=== PATIENT | female | born 1955 | race Caucasian/White ===

== ENCOUNTER 2017-08-07 18:55 | Inpatient (IN) | payer MEDICAID, OTHER ==
[~2017-08-07] VITALS: Ht 157.5 cm; Wt 91.6 kg
[~2017-08-07 18:55] MED LIST: ALBU8.5H8 INH; AMYL1CAP56 PO; BIMA2.5D EACHEYE; BRIM5DRO EACHEYE; DIGOXIN 0.125 MG TABLET PO SCH; MELO-105 PO; OMEP20CA10 PO
[2017-08-07] MEDS ORDERED: ASPIRIN 81 MG TAB.CHEW ONE ×2 (19:21→19:22)
[2017-08-07] MEDS ORDERED: ASPIRIN 81 MG TAB.CHEW PO ONE (19:30)
[2017-08-07 19:34] LABS: BASOPHILS % (AUTO) 0.4 % (0.0-2.0); EOSINOPHILS # (AUTO) 0.1 /CMM (0.0-0.7); HEMATOCRIT 43 % (33-45); HEMOGLOBIN 14.3 g/dL (11.5-14.8); LYMPHOCYTES # (AUTO) 5.3 /CMM (0.8-4.8); LYMPHOCYTES % (AUTO) 50.9 % (20.0-44.0); MEAN CORPUSCULAR HEMOGLOBIN 29 PG (26.0-33.0); MEAN CORPUSCULAR HGB CONC 33 g/dl (31.0-36.0); MEAN CORPUSCULAR VOLUME 88 fL (82-100); MONOCYTES # (AUTO) 1.5 /CMM (0.1-1.30); MONOCYTES % (AUTO) 14.6 % (2.0-12.0); NEUTROPHILS # (AUTO) 3.4 /CMM (1.8-8.9); NEUTROPHILS % (AUTO) 33.1 % (43.0-81.0); PLATELET COUNT (AUTO) 277 /CMM (150-450); RDW COEFFICIENT OF VARIATION 13.2 (11.5-15.0); RED BLOOD CELL COUNT(AUTO) 4.91 MIL/uL (4.0-5.2); WHITE BLOOD COUNT (AUTO) 10.3 K/uL (4.3-11.0)
[2017-08-07] MEDS ORDERED: DILTIAZEM HCL 25 MG IV ONE (19:35)
[2017-08-07 19:43] LABS: CALCIUM, SERUM 9.1 mg/dL (8.5-10.1); CARBON DIOXIDE 30 mmol/L (21-32); CHLORIDE 105 mmol/L (98-107); CREATININE 0.8 mg/dL (0.6-1.3); GLUCOSE 101 mg/dL (74-106); POTASSIUM 3.8 mmol/L (3.5-5.1); SODIUM SERUM 141 mmol/L (136-145); UREA NITROGEN, BLOOD 16 mg/dL (7-18)
[2017-08-07 19:48] LABS: INR 0.91 (0.85-1.15)
[2017-08-07 19:49] LABS: ALANINE AMINOTRANSFERASE 15 U/L (12-78); ALBUMIN 3.8 g/dL (3.4-5.0); ALKALINE PHOSPHATASE 87 U/L (46-116); ASPARTATE AMINOTRANSFERASE 16 U/L (15-37); BILIRUBIN,DIRECT 0.1 mg/dL (0.0-0.2); BILIRUBIN,TOTAL 0.3 mg/dL (0.2-1.0)
[2017-08-07] MEDS ORDERED: CT SWABBABLE VALVE TRANS SET 1 EA INFUS.SET MC ONE (19:49)
[2017-08-07] MEDS ORDERED: IOHEXOL-350 100 ML VIAL IV ONE (19:49)
[2017-08-07] MEDS ORDERED: IV NS 0.9% 250 ML IV ONE (19:50)
[2017-08-07 19:53] LABS: TROPONIN I < 0.017 ng/mL (0.00-0.056)
--- NOTE | 2017-08-07 19:55 | NUR ---
PT OFF TO CT SCAN
[2017-08-07] MEDS ORDERED: DILTIAZEM HCL 50 MG IV IV ONE (20:00)
[2017-08-07] MEDS ORDERED: ENOXAPARIN SODIUM 60 MG/0.6 ML DISP.SYRIN SQ ONE (20:30)
[2017-08-07] MEDS ORDERED: ENOXAPARIN SODIUM 80 MG/0.8 ML DISP.SYRIN SQ ONE (20:34)
--- NOTE | 2017-08-07 20:38 | NUR ---
REPORT GIVEN JINNY
--- NOTE | 2017-08-07 20:56 | NUR ---
RN ADMITTING TEL NOTE PT IS 61 YR OLD FEMALE,C/C LT CHEST PAIN RADIATING TO THE BACK, ER TX PT WITH ASA AND CARDIZEM UPON ARRIVAL, PT SENT TO [facility] WITH [facility], ON RM AIR, DENIES ANY CHEST PAIN OR DISCOMFORT @ THIS TIME, DR HOOVER CONTACTED FOR ADMITING ORDERS PER PROTOCOL, PT HAS NO SKIN ISSUES, WITH RITCHIE 18 G, PATENT. ALL PT NEEDS ATTENDED.
[2017-08-07] MEDS ORDERED: ZOLPIDEM TARTRATE 5 MG TABLET PO PRN (21:00)
[2017-08-07] MEDS ORDERED: ACETAMINOPHEN 325 MG TABLET PO PRN (21:30)
[2017-08-07] MEDS ORDERED: Potassium Chloride 20 MEQ in IV NS 0.9% 1,000 ML IV PRN (21:30)
[2017-08-07] MEDS ORDERED: DIGOXIN 0.125 MG TABLET PO SCH (21:42)
[2017-08-07 21:59] VITALS: BP 129/85
[2017-08-07] MEDS ORDERED: IV PREMIX NS +20MEQ KCL 1 L IV ONE (22:34)
[2017-08-08] VITALS: BP 119/64
[2017-08-08 04:00] VITALS: BP 98/54
[2017-08-08 06:11] LABS: BASOPHILS % (AUTO) 0.5 % (0.0-2.0); EOSINOPHILS # (AUTO) 0.1 /CMM (0.0-0.7); EOSINOPHILS % (AUTO) 1.4 % (0.0-6.0); HEMATOCRIT 39 % (33-45); HEMOGLOBIN 13.4 g/dL (11.5-14.8); LYMPHOCYTES # (AUTO) 5.6 /CMM (0.8-4.8); LYMPHOCYTES % (AUTO) 60.4 % (20.0-44.0); MEAN CORPUSCULAR HEMOGLOBIN 30 PG (26.0-33.0); MEAN CORPUSCULAR HGB CONC 34 g/dl (31.0-36.0); MEAN CORPUSCULAR VOLUME 88 fL (82-100); MONOCYTES # (AUTO) 0.8 /CMM (0.1-1.30); MONOCYTES % (AUTO) 8.3 % (2.0-12.0); NEUTROPHILS # (AUTO) 2.7 /CMM (1.8-8.9); NEUTROPHILS % (AUTO) 29.4 % (43.0-81.0); PLATELET COUNT (AUTO) 224 /CMM (150-450); RDW COEFFICIENT OF VARIATION 13.9 (11.5-15.0); RED BLOOD CELL COUNT(AUTO) 4.46 MIL/uL (4.0-5.2); WHITE BLOOD COUNT (AUTO) 9.3 K/uL (4.3-11.0)
[2017-08-08 06:25] LABS: CALCIUM, SERUM 9.2 mg/dL (8.5-10.1); CREATININE 0.8 mg/dL (0.6-1.3); POTASSIUM 4.1 mmol/L (3.5-5.1)
[2017-08-08 06:36] LABS: THYROID STIMULATING HORMONE 2.773 uIU/mL (0.358-3.74)
--- NOTE | 2017-08-08 07:30 | NUR ---
SPACE OPERATIONS OFFICER INITIAL NOTES RECEIVED PATIENT IN BED, NO DISTRESS NOTED, AOX3, FAMILY AT BEDSIDE, ON TELE MONITOR SR 70-80, AMBULATORY PATIENT, IV RITCHIE 18G, CLEAN AND PATENT, KCL 20 MEQ NS @ 75 ML/ HR, NO CO OF PAIN NO CO OF CHEST PAIN, BED IN LOW AND LOCKED POSITION CALL LIGHT WITHIN REACH, WILL CONTINUE TO MONITOR.
[2017-08-08 08:00] VITALS: BP 105/53
[2017-08-08] MEDS ORDERED: BRIMONIDINE TARTRATE OPHT SOLN 5 ML BOTTLE EACHEYE SCH (08:30)
[2017-08-08] MEDS ORDERED: DIGOXIN 0.125 MG TABLET PO SCH ×4 (09:00→13:00)
[2017-08-08] MEDS ORDERED: APIXABAN 5 MG TABLET PO SCH (09:00)
[2017-08-08] MEDS ORDERED: METOPROLOL TARTRATE 25 MG TABLET PO SCH (09:00)
[2017-08-08] MEDS ORDERED: MELOXICAM 7.5 MG TABLET PO SCH (09:00)
[2017-08-08] MEDS ORDERED: PANTOPRAZOLE 40 MG TABLET.DR PO SCH (09:05)
[2017-08-08 09:35] VITALS: BP 105/53
[2017-08-08] MEDS ORDERED: APIX2.5T PO (09:39)
[2017-08-08] MEDS ORDERED: METO25TA20 PO (09:39)
--- NOTE | 2017-08-08 11:12 | NUR ---
MUD MIXER OPERATOR NOTES PATIENT SEEN BY DR HWANG AND DR HOOVER, PATIENT AMBULATED WITH SIGNS OF DISTRESS NSR ON TELE, OK TO DC IF TROPONIN NEGATIVE PER DR HOOVER.
[2017-08-08] MEDS ORDERED: LIPASE/PROTEASE/AMYLASE 1 EACH CAPSULE.DR PO SCH (13:00)
--- NOTE | 2017-08-08 13:14 | NUR ---
OCULAR CARE TECHNOLOGIST NOTES PATIENT DC ORDERS GIVEN BY DR HOOVER, NO DIZZINESS, ALL DC PAPERWORK DONE, EXITCARE COMPLETED, PRESCRIPTIONS GIVEN TO PATIENT AND TEACHING DONE TO PATIENT AND TWO NEW MEDICATIONS LOPRESSOR AND ELIQUIS GIVEN TO PATIENT TEACHING DONE ABOUT SIDE EFFECTS, PATIENT VERBALIZED UNDERSTANDING, IV DC WITH WITH CATHETER INTACT, BELONGINGS LIST SIGNED, SKIN INTACT, WITH PATIENT, ACCOMPANIED PATIENT VIA WHEELCHAIR TO [facility]
[2017-08-08] MEDS ORDERED: ALBUTEROL FS 2.5 MG/3 ML VIAL.NEB NEB PRN (13:30)
[2017-08-08] MEDS ORDERED: APIXABAN 2.5 MG TABLET PO SCH (17:00)
[2017-08-08] MEDS ORDERED: LATANOPROST EYE DROP 0.005% 2.5 ML BOTTLE EACHEYE SCH (22:00)
[2017-08-09] MEDS ORDERED: PANTOPRAZOLE 40 MG TABLET.DR PO SCH (07:30)
== END 2017-08-08 13:16 | disposition home or self-care (01) | DRG 201 ==
LOC: ER 18:56 → TELE1 21:07
PROVIDERS: ADMIT Internal Medicine; ATTEND Internal Medicine
DX: I48.92 Unspecified atrial flutter (principal); C95.10 Chronic leukemia of unspecified cell type not having achieved remission; I48.91 Unspecified atrial fibrillation; E11.9 Type 2 diabetes mellitus without complications; J45.909 Unspecified asthma, uncomplicated; H26.9 Unspecified cataract; H40.9 Unspecified glaucoma; Z98.890 Other specified postprocedural states; Z88.8 Allergy status to other drugs, medicaments and biological substances; Z79.51 Long term (current) use of inhaled steroids; E66.9 Obesity, unspecified; Z68.36 Body mass index [BMI] 36.0-36.9, adult
CPT/HCPCS: 36415; 71045-TC; 80048-TC; 80061-TC; 80076-TC; 80162-TC; 84443-TC; 84484-TC; 85025-TC; 85730-TC; 87081-TC; 93307-TC; A4606; J1650; J3480; J3490; J7030; J7050; Q9967; Z7610

== ENCOUNTER 2018-02-28 21:37 | Emergency (ER) | payer MEDICAID ==
[~2018-02-28] VITALS: Ht 152.4 cm; Wt 88.0 kg
[~2018-02-28 21:37] MED LIST changes: +APIX2.5T PO; -DIGOXIN 0.125 MG TABLET PO SCH; +METO25TA20 PO
[2018-02-28 21:38] VITALS: BP 123/75
== END 2018-02-28 22:36 | disposition home or self-care (01) ==
LOC: ER 21:38
DX: S80.862A Insect bite (nonvenomous), left lower leg, initial encounter (principal); S80.861A Insect bite (nonvenomous), right lower leg, initial encounter; E11.9 Type 2 diabetes mellitus without complications; C95.90 Leukemia, unspecified not having achieved remission; H40.9 Unspecified glaucoma; Z98.49 Cataract extraction status, unspecified eye; Z94.81 Bone marrow transplant status; Z96.1 Presence of intraocular lens; Z88.6 Allergy status to analgesic agent; W57.XXXA Bitten or stung by nonvenomous insect and other nonvenomous arthropods, initial encounter; Y93.89 Activity, other specified; Y92.89 Other specified places as the place of occurrence of the external cause; Y99.8 Other external cause status
CPT/HCPCS: 99283; A4606; Z7610

== ENCOUNTER 2021-12-19 04:30 | Emergency (ER) | payer MEDICARE, OTHER ==
[~2021-12-19] VITALS: Ht 152.4 cm; Wt 86.2 kg
[~2021-12-19 04:30] MED LIST changes: -OMEP20CA10 PO; +OMEP20CA15 PO
[2021-12-19] MEDS ORDERED: GUAIFENESIN/D-METHORPHAN HB 5 ML UDC ONE (04:56)
[2021-12-19] MEDS: GUAIFENESIN/D-METHORPHAN HB 5 ML UDC PO ONE (04:59)
--- NOTE | 2021-12-19 05:00 | NUR ---
FLU SWAB COLLECTED SENT TO LAB
--- NOTE | 2021-12-19 05:34 | NUR ---
SHOWROOM MANAGER AT PT'S BEDSIDE
[2021-12-19] MEDS: ALBUTEROL FS 2.5 MG/3 ML VIAL.NEB NEB ONE (06:12)
[2021-12-19] MEDS ORDERED: ALBUTEROL FS 2.5 MG/3 ML VIAL.NEB ONE (06:15)
--- NOTE | 2021-12-19 06:18 | NUR ---
RT at pt's bedside
[2021-12-19] MEDS: predniSONE 20 MG TABLET PO ONE (06:46)
[2021-12-19] MEDS ORDERED: predniSONE 20 MG TABLET ONE (06:46)
[2021-12-19] MEDS ORDERED: PRED20TA PO (07:34)
[2021-12-19] MEDS ORDERED: DOXY100C2 PO (07:34)
[2021-12-19] MEDS ORDERED: DOXYCYCLINE HYCLATE (100 MG) 100 MG TABLET ONE (07:47)
[2021-12-19] MEDS: DOXYCYCLINE HYCLATE (100 MG) 100 MG TABLET PO ONE (07:51)
[2021-12-19 07:54] VITALS: BP 133/81
== END 2021-12-19 07:55 | disposition home or self-care (01) ==
LOC: EDUNIT# 04:30 → ER 04:39
DX: U07.1 COVID-19 (principal); J12.82 Pneumonia due to coronavirus disease 2019; J45.909 Unspecified asthma, uncomplicated; I49.9 Cardiac arrhythmia, unspecified; E11.9 Type 2 diabetes mellitus without complications; Z86.16 Personal history of COVID-19; Z88.8 Allergy status to other drugs, medicaments and biological substances; Z79.899 Other long term (current) drug therapy
CPT/HCPCS: 71045; 87804; 94640; 99283; J7512